=== PATIENT | female | born 2000 | race Two or more races ===

== ENCOUNTER 2021-06-01 13:56 | Emergency (ER) | payer OTHER ==
[~2021-06-01] VITALS: Ht 162.6 cm; Wt 72.1 kg
[2021-06-01 13:56] VITALS: BP 142/90
--- NOTE | 2021-06-01 14:13 | NUR ---
urine specimen collected and sent to lab.
[2021-06-01] MEDS ORDERED: ACETAMINOPHEN 325 MG TABLET ONE (15:00)
[2021-06-01] MEDS ORDERED: ACETAMINOPHEN 325 MG TABLET PO ONE (15:00)
[2021-06-01] MEDS ORDERED: IBUP-1955 PO (16:18)
--- NOTE | 2021-06-01 16:50 | NUR ---
Patient discharged to home in stable condition. Written and verbal after care instructions given. Patient verbalizes understanding of instruction. Pt ambulatory with a steady gait
== END 2021-06-01 16:51 | disposition home or self-care (01) ==
LOC: ER 14:05
DX: S29.011A Strain of muscle and tendon of front wall of thorax, initial encounter (principal); M25.511 Pain in right shoulder; V49.59XA Passenger injured in collision with other motor vehicles in traffic accident, initial encounter; Y93.89 Activity, other specified; Y92.413 State road as the place of occurrence of the external cause; Y99.8 Other external cause status
CPT/HCPCS: 71045-TC; 73030-TC; 84703-TC